=== PATIENT | male | born 1940 | race Caucasian/White ===

== ENCOUNTER 2019-08-18 23:25 | Emergency (ER) | payer MEDICARE, BC ==
--- NOTE | 2019-08-19 | EDM.PDOC ---
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 tonight unable to void over 2 hours. Lower Pelvic Pain Score (Numeric/FACES): 8 - Related Data Allergies Allergy/AdvReac Type Severity Reaction Status Date / Time No Known Allergies Allergy Verified 08/18/19 23:58 Home Meds: Home Meds Famotidine 40 mg PO DAILY 08/18/19 [History] Folic Acid 1 mg PO DAILY 08/18/19 [History] Methotrexate Sodium [Methotrexate] 25 mg PO WEEKLY 08/18/19 [History] predniSONE [Prednisone] 20 mg PO DAILY 08/18/19 [History] Amoxicillin 500 mg PO TID 08/19/19 [History] Fexofenadine [Tena] 180 mg PO DAILY 08/19/19 [History] Losartan [Cozaar] 25 mg PO DAILY 08/19/19 [History] Tamsulosin [Flomax] 0.4 mg PO DAILY 08/19/19 [History] amLODIPine [Norvasc] 10 mg PO DAILY 08/19/19 [History] ED ROS GENERAL - Review of Systems Review Of Systems: Comprehensive ROS is negative, except as noted in HPI. ED EXAM, RENAL/ - Physical Exam Exam: See Below Exam Limited By: No Limitations General Appearance: Alert, WD/WN, Mild Distress, Moderate Distress, Other ( discomfort). No: Active Emesis Ears: Hearing Grossly Normal Throat/Mouth: Normal Voice, No Airway Compromise Head: Atraumatic Neck: Non-Tender, Full Range of Motion Respiratory/Chest: No Respiratory Distress Cardiovascular: Regular Rate, Rhythm GI/Abdominal: Tender, Other (suprapubic). No: Distended, Guarding, Rigid, Rebound Neurological: Alert, Oriented, Normal Cognition, Normal Gait, No Motor/Sensory Deficits Psychiatric: Flat Affect Skin Exam: Warm, Dry, Normal Color Lymphatic: No Adenopathy Course - Vital Signs Last Recorded V/S: Last Vital Signs Temp 36.4 C 08/19/19 00:26 Pulse 93 08/19/19 00:26 Resp 14 08/19/19 00:26 BP 147/62 H 08/19/19 00:26 Pulse Ox 96 08/19/19 00:26 - Orders/Labs/Meds Orders: Active Orders 24 hr Category Date Time Status UA W/MICROSCOPIC [URIN] Stat Lab 08/18/19 23:47 Results Labs: Laboratory Tests 08/18/19 Range/Units 23:47 Urine Color Yellow (YELLOW) Urine Appearance Slightly cloudy (CLEAR) Urine pH 5.5 (5.0-9.0) Ur Specific Guild 1.010 (1.005-1.030) Urine Protein Negative (NEGATIVE) Urine Glucose (UA) Negative (NEGATIVE) Urine Ketones Negative (NEGATIVE) Urine Occult Blood Large H (NEGATIVE) Urine Nitrite Negative (NEGATIVE) Urine Bilirubin Negative (NEGATIVE) Urine Urobilinogen 0.2 (0.2-1.0) mg/dL Ur Leukocyte Esterase Negative (NEGATIVE) - Re-Assessments/Exams Free Text/Narrative Re-Assessment/Exam: 08/19/19 00:02 s/p Negron = >600ml feeling much better now. 08/19/19 00:35 results discussed with pt who is feeling good and wants to go. Departure - Departure Time of Disposition: 00:35 Disposition: Home, Self-Care 01 Condition: Good Clinical Impression: Urine retention - Discharge Information Instructions: Indwelling Urinary Catheter Care, Adult Forms: ED Department Discharge Additional Instructions: 1) see family doctor Wednesday 2) recheck as needed Sepsis Event Note - Focused Exam Vital Signs: Vital Signs Temp Pulse Resp BP Pulse Ox 08/19/19 00:26 36.4 C 93 14 147/62 H 96 08/18/19 23:40 35.9 C 125 H 19 156/72 H 96 Date Exam was Performed: 08/19/19 Time Exam was Performed: 00:35 - My Orders Last 24 Hours: My Active Orders 08/18/19 23:47 UA W/MICROSCOPIC [URIN] Stat - Assessment/Plan Last 24 Hours: My Active Orders 08/18/19 23:47 UA W/MICROSCOPIC [URIN] Stat
== END 2019-08-19 00:48 | disposition home or self-care (01) ==
LOC: DL.ED 23:25
DX: R33.9 Retention of urine, unspecified (principal)
CPT/HCPCS: 51702; 51798; 81001; 99282; 99283

== ENCOUNTER 2020-12-03 12:12 | Emergency (ER) | payer MEDICARE, BC ==
--- NOTE | 2020-12-03 12:29 | EDM.PDOC ---
ED HPI GENERAL MEDICAL PROBLEM - General Chief Complaint: Wound Recheck Stated Complaint: RIGHT WRIST CUT Time Seen by Provider: 12/03/20 12:28 Source of Information: Reports: Patient, Old Records, RN, RN Notes Reviewed History Limitations: Reports: No Limitations - History of Present Illness INITIAL COMMENTS - FREE TEXT/NARRATIVE: Pt presents to ER with c/o cut to right wrist with a piece of wood. Denies any splinter. No other injury. Tetanus vaccine up to date per pt. Onset: Today, Sudden Duration: Constant Location: Reports: Upper Extremity, Right Quality: Reports: Ache Severity: Mild Improves with: Reports: None Worsens with: Reports: None Associated Symptoms: Reports: No Other Symptoms - Related Data Allergies Allergy/AdvReac Type Severity Reaction Status Date / Time No Known Allergies Allergy Verified 12/03/20 12:32 Home Meds: Home Meds Famotidine 40 mg PO DAILY 08/18/19 [History] Folic Acid 1 mg PO DAILY 08/18/19 [History] metHOTREXate sodium [Methotrexate] 25 mg PO WEEKLY 08/18/19 [History] predniSONE [Prednisone] 20 mg PO DAILY 08/18/19 [History] Amoxicillin 500 mg PO TID 08/19/19 [History] Fexofenadine [Tena] 180 mg PO DAILY 08/19/19 [History] Losartan [Cozaar] 25 mg PO DAILY 08/19/19 [History] Tamsulosin [Flomax] 0.4 mg PO DAILY 08/19/19 [History] amLODIPine [Norvasc] 10 mg PO DAILY 08/19/19 [History] Past Medical History HEENT History: Reports: Cataract, Impaired Vision Cardiovascular History: Reports: Hypertension Gastrointestinal History: Reports: GERD Musculoskeletal History: Reports: Arthritis, RA Other Musculoskeletal History: Hands and knees Hematologic History: Reports: Anemia, Blood Transfusion(s), Folic Acid Oncologic (Cancer) History: Reports: Leukemia Dermatologic History: Reports: Other (See Below) Other Dermatologic History: Itchy back - Infectious Disease History Infectious Disease History: Reports: Chicken Pox, Influenza, Measles - Past Surgical History HEENT Surgical History: Reports: Naso-Sinus Surgery Other HEENT Surgeries/Procedures: Had surg. ty. GI Surgical History: Reports: Cholecystectomy, Colonoscopy, Hernia, Abdominal, Hernia, Inguinal Social & Family History - Living Situation & Occupation Occupation: Retired Review of Systems - Review of Systems Review Of Systems: Comprehensive ROS is negative, except as noted in HPI. ED EXAM, GENERAL - Physical Exam Exam: See Below Exam Limited By: No Limitations General Appearance: Alert, WD/WN, No Apparent Distress Throat/Mouth: Normal Inspection, Normal Voice, No Airway Compromise Head: Atraumatic, Normocephalic Respiratory/Chest: No Respiratory Distress Cardiovascular: Normal Peripheral Pulses Peripheral Pulses: 3+: Radial (L), Radial (R) Extremities: Normal Range of Motion, Normal Capillary Refill, Other (Right volar wrist with a transverse linear lac. 2cm to depth of subcutaneous tissue, no FB, no active bleeding.) Neurological: Alert, Oriented, No Motor/Sensory Deficits Psychiatric: Normal Mood Skin Exam: Warm, Dry ED TRAUMA EXTREMITY PROCEDURES - Laceration/Wound Repair Right Ventral Wrist Lac/Wound Length In cm: 2 Appearance: Subcutaneous, Linear Distal NVT: Neuro & Vascular Intact, No Tendon Injury Anesthetic Type: Local Local Anesthesia - Lidocaine (Xylocaine): 1% Plain Local Anesthetic Volume: 5cc Skin Prep: Chlorhexidine (Hibiciens), Saline, Sterile Drape Saline Irrigation (cc's): 1,000 Exploration/Debridement/Repair: Wound Explored, In a Bloodless Field, Explored to Base, Minimal Debridement, Minimally Undermined Suture Size: 3-0 # of Sutures: 5 Suture Type: Nylon, Interrupted Drain Placement: No Sterile Dressing Applied: Nurse Tetanus Status Addressed: Yes Complications: No Course - Vital Signs Last Recorded V/S: Last Vital Signs Temp 98.5 F 12/03/20 12:32 Pulse 104 H 12/03/20 12:32 Resp 20 12/03/20 12:32 BP 162/56 H 12/03/20 12:32 Pulse Ox 97 12/03/20 12:32 - Orders/Labs/Meds Meds: Medications Discontinued Medications Generic Name Dose Route Start Last Admin Trade Name Freq PRN Reason Stop Dose Admin Bacitracin 1 dose 12/03/20 12:31 Bacitracin Oint 1 Gm U/D Packet TOP 12/03/20 12:32 ONETIME ONE Lidocaine HCl 30 ml 12/03/20 12:31 Lidocaine 1% 30 Ml Sdv INJECT 12/03/20 12:32 ONETIME ONE Departure - Departure Time of Disposition: 13:25 Disposition: Home, Self-Care 01 Condition: Good Clinical Impression: Laceration of right wrist Qualifiers: Encounter type: initial encounter Qualified Code(s): S61.511A - Laceration without foreign body of right wrist, initial encounter - Discharge Information *PRESCRIPTION DRUG MONITORING PROGRAM REVIEWED*: Not Applicable *COPY OF PRESCRIPTION DRUG MONITORING REPORT IN PATIENT MARISOL: Not Applicable Instructions: Laceration Care, Adult Forms: ED Department Discharge Additional Instructions: Follow up in clinic in 7 to 10 days for suture removal. Return to ER if any signs of wound infection develop. Sepsis Event Note (ED) - Focused Exam Vital Signs: Vital Signs Temp Pulse Resp BP Pulse Ox 12/03/20 12:32 98.5 F 104 H 20 162/56 H 97
[2020-12-03] MEDS ORDERED: Lidocaine 1% 30 ML SDV INJECT ONE (12:31)
[2020-12-03] MEDS ORDERED: Bacitracin Oint 1 GM U/D Packet TOP ONE (12:31)
== END 2020-12-03 12:59 | disposition home or self-care (01) ==
LOC: DL.ED 12:12
DX: S61.511A Laceration without foreign body of right wrist, initial encounter (principal); I10 Essential (primary) hypertension; W26.8XXA Contact with other sharp object(s), not elsewhere classified, initial encounter
CPT/HCPCS: 12001; 99282; 99282-25

== ENCOUNTER 2020-12-12 06:18 | Day surgery (SDC) | payer MEDICARE, BC ==
[~2020-12-12 06:18] MED LIST: Midazolam 1 MG/ML 2 ML SDV ONE; fentaNYL 100 MCG/2 ML SDV ONE
[2020-12-12] MEDS ORDERED: fentaNYL 100 MCG/2 ML SDV IV ONE ×3 (06:19→07:57)
[2020-12-12] MEDS ORDERED: Midazolam 1 MG/ML 2 ML SDV IV ONE ×3 (06:19→07:59)
[2020-12-12] MEDS ORDERED: Dextrose 5%-0.45% NaCl 1,000 ML IV SCH (06:30)
--- NOTE | 2020-12-12 14:51 | OR ---
DATE: 12/12/2020 PROCEDURES: Esophagogastroduodenoscopy and multiple pinch biopsies. INSTRUMENT USED: [id number]-HQ190 Olympus video panendoscope. PREMEDICATIONS: No oral or topical anesthesia used. Fentanyl 100 mcg intravenous, Versed 2 mg intravenous, nasal O2 cannula. The procedure was done under pulse oximetry, BP recording, and shelter monitor. INDICATION: The patient with history of melena, Hemoccult-positive stools, and anemia. Esophagogastroduodenoscopy is performed for detection of any active erosive lesions, Ruiz esophagus and/or malignancy also under consideration, H pylori status to be determined, endoscopic hemostasis therapy if needed. PROCEDURE IN DETAIL: The scope was passed with ease. Adequate visualization of the esophagus was made from proximal to distal areas. No upper esophageal lesions identified. No distal esophageal stricture. No uphill or downhill esophageal varices. No Libby-Phan tear. No evidence of erosive esophagitis by Stetson criteria. No esophageal polyp or tumor mass identified. Z-line was seen at around 40 cm distal to the oral verge. No proximal gastric varices noted. Gastric fundus examination by retroflexion showed numerous diminutive benign-appearing polyps. No gastric ulcer, malignant mass, or vascular ectasia identified. Duodenal bulb showed no ulcer. Visualized second part of the duodenum was unremarkable. Multiple pinch biopsies were taken from the gastric antrum and proximal body and sent for PyloriTek test for H pylori, and if negative in an hour, the tissue is to be sent for histopathology. No bleeding was noted from any of the visualized areas at the completion of examination. Photographs were taken of the duodenal bulb, gastric antrum, fundus, and distal esophagus. IMPRESSION: Diminutive gastric fundus polyps. The patient tolerated the procedure well. [facility] /[id number]
== END 2020-12-12 10:00 | disposition home or self-care (01) ==
LOC: DL.ENDO 06:18
PROVIDERS: ATTEND Internal Medicine Gastroenterology
DX: K31.7 Polyp of stomach and duodenum (principal); D64.9 Anemia, unspecified; K92.2 Gastrointestinal hemorrhage, unspecified; I10 Essential (primary) hypertension; K21.9 Gastro-esophageal reflux disease without esophagitis; M06.9 Rheumatoid arthritis, unspecified; C91.10 Chronic lymphocytic leukemia of B-cell type not having achieved remission; N40.0 Benign prostatic hyperplasia without lower urinary tract symptoms; Z90.49 Acquired absence of other specified parts of digestive tract; Z86.010 Personal history of colon polyps; Z98.890 Other specified postprocedural states
CPT/HCPCS: 87077; 88305; J2250; J3010; J7042

== ENCOUNTER 2020-12-16 05:20 | Day surgery (SDC) | payer MEDICARE, BC ==
[~2020-12-16 05:20] MED LIST changes: +Dextrose 5%-0.45% NaCl 1,000 ML IV SCH; +Sodium Chloride 0.9% 10 ML Syringe FLUSH PRN
[2020-12-16] MEDS ORDERED: Midazolam 1 MG/ML 2 ML SDV IV ONE ×7 (05:21→06:46)
[2020-12-16] MEDS ORDERED: fentaNYL 100 MCG/2 ML SDV IV ONE ×3 (05:21→06:36)
[2020-12-16] MEDS ORDERED: Dextrose 5%-0.45% NaCl 1,000 ML IV SCH (05:45)
--- NOTE | 2020-12-16 10:32 | OR ---
DATE: 12/16/2020 PROCEDURE: Total colonoscopy. INSTRUMENT USED: [id number]-[id number] Olympus video colonoscope. PREMEDICATIONS: Fentanyl 100 mcg intravenous, Versed 4 mg intravenous, nasal O2 cannula. The procedure was done under pulse oximetry, BP recording, and equipment monitor phototypesetting. INDICATION: The patient with significant anemia and Hemoccult-positive stools. Colonoscopic examination is done for detection of any polypoid lesions and removal, endoscopic hemostasis therapy if needed. DESCRIPTION OF PROCEDURE: Initial rectal exam showed BPH. Rigid anoscopy showed small internal hemorrhoids without bleeding from them. The colonoscope was passed with ease. Scattered diverticula were noted in the distal left colon along with deformity. The scope was passed with ease up to the ileocecal area. Photographs were taken of the normal-appearing cecum identified by double-bulged ileocecal folds. No bleeding was noted from any of the visualized areas at the commencement of the examination. The bowel preparation was found to be adequate, Randall scale 2 in all the regions, total score 6. No stricture. No vascular ectasia. No large isolated ulcerations seen. No evidence of diffuse inflammatory bowel disease in the form of friability, contact bleeding, or ulcerations. No polyp or tumor mass identified. Probing the proximal sides of folds and flexures using adequate distention and clearing up the stool material, withdrawal of the scope was made, cecum to rectum time over 6 minutes. No bleeding was noted from any of the visualized areas at the completion of examination. IMPRESSION: 1. Internal hemorrhoids. 2. Diverticulosis. The patient tolerated the procedure well. [facility] /[id number]
== END 2020-12-16 09:07 | disposition home or self-care (01) ==
LOC: DL.ENDO 05:20
PROVIDERS: ATTEND Internal Medicine Gastroenterology
DX: K57.30 Diverticulosis of large intestine without perforation or abscess without bleeding (principal); D64.9 Anemia, unspecified; K64.8 Other hemorrhoids; I10 Essential (primary) hypertension; K21.9 Gastro-esophageal reflux disease without esophagitis; M06.9 Rheumatoid arthritis, unspecified; C91.90 Lymphoid leukemia, unspecified not having achieved remission; N40.0 Benign prostatic hyperplasia without lower urinary tract symptoms; Z86.010 Personal history of colon polyps; Z90.49 Acquired absence of other specified parts of digestive tract
CPT/HCPCS: J2250; J3010; J7042

== ENCOUNTER 2023-08-08 08:30 | Emergency (ER) | payer MEDICARE, BC ==
[2023-08-08] MEDS ORDERED: Acetaminophen 325 MG Tab PO ONE (08:57)
== END 2023-08-08 10:18 | disposition home or self-care (01) ==
LOC: DL.ED 08:30
DX: M54.50 Low back pain, unspecified (principal); I10 Essential (primary) hypertension; E03.9 Hypothyroidism, unspecified; M19.90 Unspecified osteoarthritis, unspecified site; Z79.82 Long term (current) use of aspirin; Z79.899 Other long term (current) drug therapy
CPT/HCPCS: 72100; 72220; 99283